=== PATIENT | male | born 1955 | race Caucasian/White ===

== ENCOUNTER 2021-11-02 19:41 | Inpatient (IN) | payer OTHER ==
[~2021-11-02] VITALS: Ht 165.1 cm; Wt 81.6 kg
--- NOTE | 2021-11-02 19:46 | NUR ---
PT BIBA [facility] ER BED 9
[2021-11-02 19:51] VITALS: BP 111/68
[2021-11-02 20:06] LABS: BASOPHILS # (AUTO) 0.1 K/uL (0.00-0.22); BASOPHILS % (AUTO) 0.6 % (0.0-2.0); EOSINOPHILS % (AUTO) 0.3 % (0.0-4.0); HEMATOCRIT 27.3 % (36-52); HEMOGLOBIN 8.7 g/dL (12.0-18.0); LYMPHOCYTES # (AUTO) 0.8 K/uL (2.0-11.5); LYMPHOCYTES % (AUTO) 7.7 % (20.5-51.1); MEAN CORPUSCULAR HEMOGLOBIN 32 pg (27-31); MEAN CORPUSCULAR HGB CONC 32 g/dL (33-37); MEAN CORPUSCULAR VOLUME 99.1 fL (80-94); MONOCYTES # (AUTO) 0.9 K/uL (0.8-1.0); NEUTROPHILS # (AUTO) 8.4 K/uL (1.8-7.7); NEUTROPHILS % (AUTO) 82.4 % (42.2-75.2); PLATELET COUNT (AUTO) 271 K/uL (140-450); RED BLOOD CELL COUNT(AUTO) 2.76 MIL/uL (4.20-6.10); WHITE BLOOD COUNT (AUTO) 10.2 K/uL (4.8-10.8)
--- NOTE | 2021-11-02 20:10 | NUR ---
PT BIBA FROM [facility], C/O CP AND SOB X45 MINUTES. PT STATES WORSENING PAIN WITH INSPIRATION AND DESCRIBED PRESSURE 6/10. A/OX4 95% ON ROOM AIR. PT APPEARS PALE, WARM, DRY. HX: PERITONEAL DIALYSIS, HTN, HIGH CHOLESTEROL, DM NKA
[2021-11-02 20:24] LABS: ALBUMIN 2.8 g/dL (3.4-5.0); ANION GAP 21.6 (8-16); CARBON DIOXIDE 27.2 mmol/L (21-32); POTASSIUM 5.8 mmol/L (3.5-5.1); TOTAL BILIRUBIN 0.4 mg/dL (0.0-1.0)
[2021-11-02 20:26] LABS: CREATININE 16.9 mg/dL (0.6-1.3)
[2021-11-02 20:32] LABS: LIPASE 129 U/L (73-393)
--- NOTE | 2021-11-02 20:56 | NUR ---
XRAY AT BEDSIDE
--- NOTE | 2021-11-02 21:33 | NUR ---
COVID/MASON SWAB COLLECTED AND WALKED TO LAB
[2021-11-02] MEDS ORDERED: ASPIRIN 81 MG TAB.CHEW PO ONE (21:35)
[2021-11-02] MEDS ORDERED: hePARIN / DEXT 5% PREMIX 250 ML IV ONE (21:50)
[2021-11-02] MEDS ORDERED: HEPARIN PER PHARMACY MC PRN (21:50)
[2021-11-02 22:06] LABS: PROTHROMBIN TIME 10.3 secs (10.8-13.4)
[2021-11-02] MEDS ORDERED: INSULIN REGULAR, HUMAN 100 UNIT/ML VIAL IVP ONE (23:00)
[2021-11-02] MEDS ORDERED: DEXTROSE 50% 50 ML SYR IVP ONE (23:00)
[2021-11-02] MEDS ORDERED: ALBUTEROL 0.083% 2.5 MG/3 ML NEBU INH ONE (23:00)
--- NOTE | 2021-11-02 23:07 | NUR ---
DIRECTOR CALL CENTER SALES AT BEDSIDE
[2021-11-02] MEDS ORDERED: SODIUM ZIRCONIUM CYCLOSILICATE 10 GM POWD.PACK PO ONE (23:35)
[2021-11-03] MEDS: hePARIN / DEXT 5% PREMIX 250 ML IV SCH ×2 (00:09→15:45)
[2021-11-03] MEDS ORDERED: SODIUM ZIRCONIUM CYCLOSILICATE 10 GM POWD.PACK ONE ×2 (01:08→07:52)
--- NOTE | 2021-11-03 03:52 | NUR ---
Patient appears to be resting comfortably in bed. Vital Signs within normal limits. Respirations even and unlabored. Pt is in good spirits.
--- NOTE | 2021-11-03 03:52 | NUR ---
BARROW WORKER AT BEDSIDE FOR REPEAT PT/PTT
[2021-11-03] MEDS ORDERED: ONDANSETRON 4 MG/2 ML VIAL IVP ONE (04:20)
[2021-11-03 04:29] LABS: PROTHROMBIN TIME 10.4 secs (10.8-13.4)
[2021-11-03] MEDS ORDERED: BUMETANIDE 1 MG/4 ML VIAL IV SCH (06:00)
[2021-11-03 06:19] LABS: ALBUMIN 2.9 g/dL (3.4-5.0); ANION GAP 26.8 (8-16); CARBON DIOXIDE 24.5 mmol/L (21-32); PHOSPHORUS 6.7 mg/dL (2.5-4.9)
[2021-11-03] MEDS ORDERED: ONDANSETRON 4 MG/2 ML VIAL ONE (06:32)
[2021-11-03 06:40] LABS: POTASSIUM 6.3 mmol/L (3.5-5.1)
[2021-11-03] MEDS ORDERED: SODIUM ZIRCONIUM CYCLOSILICATE 10 GM POWD.PACK PO ONE (06:45)
[2021-11-03] MEDS ORDERED: DEXTROSE 50% 50 ML SYR IVP ONE ×2 (06:45→07:51)
[2021-11-03] MEDS ORDERED: INSULIN REGULAR, HUMAN 100 UNIT/ML VIAL SUBQ ONE (06:45)
[2021-11-03] MEDS ORDERED: SODIUM BICARBONATE 8.4% PFS 50 MEQ/50 ML SYR IVP ONE ×2 (06:45→07:51)
--- NOTE | 2021-11-03 07:30 | NUR ---
RECIEVED REPORT. PT HAS HEPARIN RUNNING AT 850 U/HR. NO SIGNS OF BLEEDING AT THIS TIME.
--- NOTE | 2021-11-03 07:32 | NUR ---
Pt report given to LOPEZ CLIEN. Transfer of care at this time.
[2021-11-03] MEDS ORDERED: INSULIN REGULAR, HUMAN 100 UNIT/ML VIAL IVP ONE (07:40)
--- NOTE | 2021-11-03 08:27 | NUR ---
PT C/O CHEST PRESSURE, DR BELLA AT BEDSIDE EVALUATING PT. EMT AT BEDSIDE FOR EKG
--- NOTE | 2021-11-03 09:15 | NUR ---
HEPARIN DRIP RUNNING AT 850 UNITS/HR. WITH NEW PPT VALUE, PER HEPARIN PROTOCOL, DRIP TITRATED TO 1150 UNITS/HR. COSIGNED BY 2ND RODDY.
[2021-11-03] MEDS ORDERED: MORPHINE SULFATE 2 MG/ML SYR IVP PRN (10:20)
[2021-11-03] MEDS ORDERED: ACETAMINOPHEN 325 MG TAB PO PRN (10:20)
[2021-11-03] MEDS ORDERED: ONDANSETRON 4 MG/2 ML VIAL IVP PRN (10:20)
[2021-11-03] MEDS ORDERED: HYDROcodone/APAP 5/325 MG 1 TAB TAB PO PRN (10:20)
[2021-11-03] MEDS ORDERED: DEXTROSE 50% 50 ML SYR IVP PRN (10:20)
--- NOTE | 2021-11-03 10:35 | NUR ---
SPOKE WITH PATIENTS SON, ROEL PATEL FOR UPDATE. [phone] PT ADMITTED, AWAITING BED ASSIGNMENT.
[2021-11-03 10:50] LABS: PROTHROMBIN TIME 11.1 secs (10.8-13.4)
--- NOTE | 2021-11-03 11:01 | NUR ---
RECEIVED CRITICAL PTT FROM LAB, PER HEPARIN PROTOCOL, NO CHANGE.
--- NOTE | 2021-11-03 11:15 | NUR ---
Patient will be admitted to care of DR. CRAWFORD. Admited to TELEMETRY. Will go to room 115. Belongings list completed. Report to LOPEZ BARBA.
[2021-11-03] MEDS: BLOOD GLUCOSE MONITORING 1 DEV DEV FS SCH ×3 (11:30→20:34)
[2021-11-03 12:00] VITALS: BP 94/54
[2021-11-03] MEDS ORDERED: EPOETIN ALFA-EPBX 20,000 UNITS/ML VIAL SUBQ SCH (13:00)
--- NOTE | 2021-11-03 14:24 | NUR ---
DC PLANNING: FAXED [facility] ORDER TO [facility], [facility], [facility], [facility] AND [facility]. CM TO FOLLOW Addendum: 11/04/21 at 1141 by Abi Ross RN DC PLANNING: CALLED [facility] HOUSE SUP SPOKE WITH MARC MORALES [facility] IS ON DIVERSION FOR CARDIA THORACIC SURGERY BECAUSE OF STAFFING ISSUES. [facility] AND [facility] THEIR [facility]ACITY. FAXED TO [facility] , [facility]. CM TO FOLLOW Addendum: 11/04/21 at 1219 by Abi Ross RN DC PLANNING: INSURANCE CHANGE PATIENT HAS [facility]. CALLED SEAN SAHA AT NOTIFIED HIM PT'S ADMISSION AND THE NEED FOR HIGHER LEVEL. PER SEAN TO FAX TO [facility]. FAXED TO [facility]. CM TO FOLLOW Addendum: 11/04/21 at 1641 by Abi Ross RN DC PLANNING RECEIVED AUTH # FLORY ESTRADA CM OF [facility] [id number] FOR [facility] [id number]. ARRANGED TRANSPORT WITH [facility] PLACE IT WILL CALL. CM TO FOLLOW
[2021-11-03 15:26] LABS: PROTHROMBIN TIME 11.7 secs (10.8-13.4)
[2021-11-03 16:00] VITALS: BP 113/56
[2021-11-03] MEDS: SODIUM ZIRCONIUM CYCLOSILICATE 10 GM POWD.PACK PO SCH (17:30)
--- NOTE | 2021-11-03 19:30 | NUR ---
RECEIVED PT FROM AM SHIFT NURSE FOR CONTINUITY OF CARE. PT A/A/O X 4,SISTER AT BEDSIDE,EATING DINNER. PERITONEAL DIALYSIS ONGOING. ON 4LO2 VIA NC, O2 SAT AT 99%. BREATHING EQUAL AND UNLABORED, NO DISTRESS NOTED. REPORTS CHEST TIGHTNESS. IV ON L FA G20, SL, AND R FA G22, INFUSING HEPARIN AT 1000UNITS/HR.SKIN WARM, DRY AND INTACT. ALL PRECAUTIONS IN PLACE. CALL LIGHT WITHIN REACH. WILL CONTINUE TO MONITOR.
[2021-11-03] MEDS: INSULIN LISPRO SLIDING SCALE 100 UNITS/ML VIAL SUBQ PRN (20:35)
[2021-11-03] MEDS ORDERED: traZODone 50 MG TAB PO SCH (21:00)
[2021-11-03] MEDS ORDERED: ATORVASTATIN 80 MG TAB PO SCH (21:00)
--- NOTE | 2021-11-03 21:00 | NUR ---
SCHEDULED MEDICATIONS GIVEN. BLOOD SUGAR WAS 202. INSULIN COVERAGE GIVEN PER PROTOCOL. PT COMPLAINED OF NAUSEA, PRN ZOFRAN GIVEN. PT TOLERATED WELL. WILL CONTINUE TO MONITOR.
--- NOTE | 2021-11-03 23:50 | NUR ---
RECEIVED PTT RESULTS FROM LAB, PTT >150. HEPARIN STOPPED PER PROTOCOL.
[2021-11-04] VITALS: BP 118/66
--- NOTE | 2021-11-04 | NUR ---
PERITONEAL DIALYSIS ONGOING. PT ASLEEP, BREATHING EQUAL AND UNLABORED. VITAL SIGNS STABLE. NO DISTRESS NOTED. ALL PRECAUTIONS IN PLACE.CALL LIGHT WITHIN REACH. WILL CONTINUE TO MONITOR.
--- NOTE | 2021-11-04 00:50 | NUR ---
HEPARIN DRIP RESUMED AND DECREASED BY 200UNITS/HR PER PROTOCOL. NEXT PTT DRAW WILL BE AT 0650.
[2021-11-04] MEDS: hePARIN / DEXT 5% PREMIX 250 ML IV SCH ×2 (01:08→08:44)
--- NOTE | 2021-11-04 03:33 | NUR ---
PT ASLEEP. RESPIRATIONS EQUAL AND UNLABORED. NO DISTRESS NOTED. ALL PRECAUTIONS IN PLACE. CALL LIGHT WITHIN REACH.WILL CONTINUE TO MONITOR.
[2021-11-04 04:00] VITALS: BP 102/64
[2021-11-04] MEDS ORDERED: LEVOTHYROXINE 0.075 MG TAB PO SCH (06:30)
[2021-11-04] MEDS: BLOOD GLUCOSE MONITORING 1 DEV DEV FS SCH ×3 (06:45→16:43)
[2021-11-04 07:10] LABS: BASOPHILS % (AUTO) 0.5 % (0.0-2.0); EOSINOPHILS # (AUTO) 0.1 K/uL (0-0.4); EOSINOPHILS % (AUTO) 0.6 % (0.0-4.0); HEMATOCRIT 24.1 % (36-52); HEMOGLOBIN 7.9 g/dL (12.0-18.0); LYMPHOCYTES # (AUTO) 0.9 K/uL (2.0-11.5); LYMPHOCYTES % (AUTO) 9.8 % (20.5-51.1); MEAN CORPUSCULAR HEMOGLOBIN 32 pg (27-31); MEAN CORPUSCULAR HGB CONC 33 g/dL (33-37); MEAN CORPUSCULAR VOLUME 99.3 fL (80-94); MONOCYTES # (AUTO) 1.1 K/uL (0.8-1.0); MONOCYTES % (AUTO) 12.2 % (1.7-9.3); NEUTROPHILS # (AUTO) 6.8 K/uL (1.8-7.7); NEUTROPHILS % (AUTO) 76.9 % (42.2-75.2); PLATELET COUNT (AUTO) 201 K/uL (140-450); RED BLOOD CELL COUNT(AUTO) 2.43 MIL/uL (4.20-6.10); RED CELL DISTRIBUTION WIDTH 17.9 % (11.6-13.7); WHITE BLOOD COUNT (AUTO) 8.9 K/uL (4.8-10.8)
[2021-11-04 07:18] LABS: ALBUMIN 2.2 g/dL (3.4-5.0); ANION GAP 19.2 (8-16); CARBON DIOXIDE 32.4 mmol/L (21-32); MAGNESIUM 3.1 mg/dL (1.8-2.4); POTASSIUM 4.6 mmol/L (3.5-5.1); TOTAL BILIRUBIN 0.5 mg/dL (0.0-1.0)
[2021-11-04 07:40] LABS: CREATININE 16.9 mg/dL (0.6-1.3)
[2021-11-04 08:00] VITALS: BP 104/61
[2021-11-04] MEDS: CALCIUM ACETATE 667 MG TAB PO SCH ×3 (08:38→16:56)
[2021-11-04] MEDS: SODIUM ZIRCONIUM CYCLOSILICATE 10 GM POWD.PACK PO SCH ×2 (08:39→12:13)
[2021-11-04] MEDS ORDERED: VITAMIN D 400 IU TAB PO SCH (09:00)
[2021-11-04] MEDS ORDERED: ASPIRIN 81 MG TAB.CHEW PO SCH (09:00)
[2021-11-04] MEDS ORDERED: MORP2SOL18 IVP (09:44)
[2021-11-04] MEDS ORDERED: ONDA2SOL45 IVP (09:44)
[2021-11-04] MEDS ORDERED: SYN.075 PO (09:44)
[2021-11-04] MEDS ORDERED: SODI10PO PO (09:44)
[2021-11-04] MEDS ORDERED: HEPA-133 IV (09:44)
[2021-11-04] MEDS ORDERED: HUMSLIDE SUBQ (09:44)
[2021-11-04] MEDS ORDERED: TRAZ-466 PO (09:44)
[2021-11-04] MEDS ORDERED: HEPA500056 IV (09:44)
[2021-11-04] MEDS ORDERED: [UNRECOGNIZED DRUG - CODE] IV (09:44)
[2021-11-04] MEDS ORDERED: ACET-9525 PO (09:44)
[2021-11-04] MEDS ORDERED: CALC667C3 PO (09:45)
[2021-11-04] MEDS ORDERED: D50SYR IVP (09:45)
[2021-11-04] MEDS ORDERED: LIP80 PO (09:45)
[2021-11-04] MEDS ORDERED: GLUC-805 FS (09:45)
[2021-11-04] MEDS ORDERED: ACET-1182 PO (09:45)
[2021-11-04] MEDS ORDERED: ASPI81CT95 PO (09:45)
--- NOTE | 2021-11-04 10:02 | NUR ---
PATIENT HAS BEEN SCREENED AND CATEGORIZED HIGH NUTRITION RISK. PATIENT WILL BE SEEN WITHIN 1-2 DAYS OF ADMISSION. 11/04/21 REFERRAL RECEIVED FOR NAUSEA AND VOMITING OVER THREE DAYS [address]
[2021-11-04 12:00] VITALS: BP 99/67
[2021-11-04] MEDS: INSULIN LISPRO SLIDING SCALE 100 UNITS/ML VIAL SUBQ PRN (12:07)
--- NOTE | 2021-11-04 15:20 | NUR ---
11/04/21 RD INITIAL ASSESSMENT COMPLETED PLEASE REFER TO NUTRITION ASSESSMENT UNDER CARE ACTIVITY FOR ESTIMATED NUTRITIONAL NEEDS. 1. RECOMMEND CCHO 60 GMS + RENAL DIET TOLERATED 2. MONITOR PO INTAKE AND GI SYMPTOMS 3. PROVIDED CHF AND RENAL NUTRITION EDUCATION AND HANDOUTS 4. RD TO FOLLOW-UP 3-5 DAYS, MODERATE RISK REVIEWED BY BARBARA MAGDALENO RD
[2021-11-04 16:00] VITALS: BP 105/58
== END 2021-11-04 18:20 | DRG 291 ==
LOC: MED 19:41 → MTU 11-03 10:19
PROVIDERS: ADMIT Internal Medicine; ATTEND Internal Medicine
PROC: 3E1M39Z Irrigation of Peritoneal Cavity using Dialysate, Percutaneous Approach (ICD-10-PCS; principal; 2021-11-03)
PROC: 3E1M39Z Irrigation of Peritoneal Cavity using Dialysate, Percutaneous Approach (ICD-10-PCS; 2021-11-04)
DX: I13.2 Hypertensive heart and chronic kidney disease with heart failure and with stage 5 chronic kidney disease, or end stage renal disease (principal); I50.23 Acute on chronic systolic (congestive) heart failure; N18.6 End stage renal disease; E87.1 Hypo-osmolality and hyponatremia; I24.9 Acute ischemic heart disease, unspecified; E87.5 Hyperkalemia; E11.22 Type 2 diabetes mellitus with diabetic chronic kidney disease; I25.10 Atherosclerotic heart disease of native coronary artery without angina pectoris; E78.5 Hyperlipidemia, unspecified; D63.1 Anemia in chronic kidney disease; I25.5 Ischemic cardiomyopathy; Z20.822 Contact with and (suspected) exposure to COVID-19; Z99.2 Dependence on renal dialysis
CPT/HCPCS: 36415; 71045; 80053; 82040; 82435; 82565; 82947; 82948; 83690; 83735; 83880; 84100; 84132; 84295; 84484; 84520; 85025; 85610; 85730; 87081; 93005; 94640; 96374; 96375; 96376; 99291; J1644; J1815; J2405; J3490; J7613; Q0092; Q5106